=== PATIENT | male | born 1990 | race Caucasian/White ===

== ENCOUNTER → 2020-06-20 09:41 | Outpatient (BNVA) | payer MEDICARE, MEDICAID, SELFPAY | PROVIDERS: Family Provider Nurse Practitioner Family; PCP Nurse Practitioner Family; Visit Provider Psychiatry & Neurology Psychiatry | DX: F29 Unspecified psychosis not due to a substance or known physiological condition (principal); F41.1 Generalized anxiety disorder; S06.9X9A Unspecified intracranial injury with loss of consciousness of unspecified duration, initial encounter | CPT/HCPCS: 90792 ==

== ENCOUNTER 2022-08-30 14:05 | Inpatient (IN) | payer MEDICAID, SELFPAY ==
[2022-08-30 14:13] VITALS: BP 149/90; PULSE 71; RESP 16; TEMP 36.6; O2SAT 98
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
[2022-08-30 14:47] LABS: Basophils # 0.1 10^3/uL (0.0-0.1); Basophils % 0.5 %; Eosinophils # 0.3 10^3/uL (0.0-0.8); Eosinophils % 2.7 %; Hematocrit 49.1 % (42.0-52.0); Hemoglobin 16.1 g/dL (11.7-16.6); Lymphocytes # 3.1 10^3/uL (0.8-4.8); Lymphocytes % 31.3 %; Mean Corpuscular HGB Conc 32.8 g/dL (30.0-36.0); Mean Corpuscular Hemoglobin 31.3 pg (28.0-34.0); Mean Corpuscular Volume 95.3 fl (80-94); Mean Platelet Volume 9.7 fL (7.4-10.4); Monocytes # 0.5 10^3/uL (0.2-0.9); Monocytes % 5.2 %; Neutrophils # 6.03 10^3/uL (1.8-7.7); Neutrophils % 60.2 %; Nucleated Red Blood Cells % 0 %; Platelet Count 231 10^3/cmm (130-400); Red Blood Count 5.15 10^6/uL (4.1-5.3)
[2022-08-30 15:05] LABS: Alanine Aminotransferase 21 U/L (0-41); Albumin Level 4.5 g/dL (3.5-5.2); Alkaline Phosphatase 67 U/L (40-130); Anion Gap 13.2 (5-19); Aspartate Amino Transferase 20 U/L (0-40); Blood Urea Nitrogen 7 mg/dL (6-20); Calcium 9.3 mg/dL (8.5-10.5); Carbon Dioxide 30 mmol/L (22-29); Chloride 104 mmol/L (98-107); Globulin 2.7 g/dL (1.3-4.6); Glomerular Filtration Rate 99.1 mL/min (90-130); Glucose 93 mg/dL (65-115); Osmolality Calculated 294 mOsm/kg (285-295); Potassium 4.2 mmol/L (3.5-5.1); Sodium 143 mmol/L (136-145); Total Bilirubin 0.5 mg/dL (0.15-1.2); Total Protein 7.2 g/dL (6.6-8.7)
[2022-08-30 15:06] LABS: Acetaminophen < 5.0 ug/mL (10-30); Alcohol Level < 10 mg/dL (0-10); Salicylate < 0.3 mg/dL (3-10)
--- NOTE | 2022-08-30 16:12 | PC.PHAR ---
unable to verify medications with pt hes just sitting in his chair knocking on the armrest and wont speak-no meds pull up on ext med history
[2022-08-30 16:20] LABS: Amphetamines Screen Urine Positive (Negative); Barbiturates Screen Urine Negative (Negative); Benzodiazepines Screen Urine Negative (Negative); Cocaine Screen Urine Negative (Negative); Opiate Screen Urine Negative (Negative); PCP Screen Urine Negative (Negative); THC Screen Urine Positive (Negative)
[2022-08-30 16:42] VITALS: BP 148/92; PULSE 68; RESP 20; TEMP 36.9; O2SAT 96
--- NOTE | 2022-08-30 18:59 | PC.NURSE ---
31 Y/O MALE ADMITTED TO NPU UNIT FROM ED. REPORTED THAT PT. WENT TO [facility] FOR SI AND DEPRESSION AND WAS BROUGHT TO [facility] ED DUE TO SEVERITY OF WANTING TO HARM SELF. PATIENT IS INVOL. 96 HOLD. ARRIVED ON UNIT IN W/C ESCORTED BY SECURITY AND ED STAFF. VERY AGITATED AND HOSTILE UPON ARRIVAL. UNCOOPERATIVE. STARED BANGING HEAD ON WALL. CODE 10 CALL BUT WAS NOT USED. PATIENT ANSWERED SOMW QUESTION BY NURSE DURING ASSESSMENT BUT REMAINED VERY AGITATED THROUGHOUT ASSESSMENT. STATED HE HAS 3 TBI'S AND DOESNT REMEMBER THINGS LIKE HE SHOULD. VERY UPSET AND REFUSE TO ANSWER MOST OF ASSESSMENT. NURSE SPOKE WITH MOTHER OF PATIENT AND SHE CONFIRM HER SON HAS NOT BEEN ON ANY MEDS EXCEPT MEDICAL MARIJUANA. STATES HE USES IT FOR HIS SEIZURES. PATIENT IN ROOM AND REFUSES TO SPEAK WITH STAFF. AT THIS TIME.
[2022-08-30 21:30] VITALS: BP 137/92; PULSE 75; RESP 16; TEMP 36.7; O2SAT 94
--- NOTE | 2022-08-31 09:53 | PC.NURSE ---
Pt resting in bed. Name called a few times before pt opened his eyes. Alert, appears oriented. Poor eye contact with staff. Denies anxiety, depression, pain, anger, suicidal/homicidal thoughts. Pt reports he's seeing and hearing my friends. Said his sleep wasn't so good, he tossed and turned. Didn't answer when asked about appetite. Continues to rest in bed. Pt asked if he wanted to add anyone to his call list, but he declined.
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
[2022-08-31 14:00] VITALS: BP 133/84; PULSE 79; RESP 18; TEMP 36.6; O2SAT 97
[2022-08-31 22:00] VITALS: BP 144/80; PULSE 74; RESP 18; TEMP 36.7; O2SAT 96
[2022-08-31] MEDS: nicotine 2 mg Gum BUCCAL (22:29)
--- NOTE | 2022-09-01 10:35 | PC.NURSE ---
Updated phone number for the pt's Sandrine Murcia [phone].
--- NOTE | 2022-09-01 13:37 | PC.NURSE ---
Dr. Meneses notified of pt's seizure-like activity. No new orders.
--- NOTE | 2022-09-01 13:40 | PC.NURSE ---
Pt resting on left side in a near position. Pt's left arm stiff with left hand clenched in a fist resting at the top of his knees. Pt's body was tense and fine tremors noted. Pt's eyes were staring and he did not respond to verbal stimuli. The pt's positioned changed slightly at times. Pt's color remain pink, skin warm and moist with some beads of sweat noted on pt's forehead. Seizure-like activity continued for approximately two minutes and then pt began to respond to staff. RINCON. Pt's breaths became audible, were deep intially and after about three deep breaths pt responded appropriately. The MD came into the pt's room at this time and spoke with him. The patient sat up and adjusted his blankets, then lay back in the bed and visited with the MD. The patient showed no lethargy or sluggishness after this seizure-like activity.
--- NOTE | 2022-09-01 13:53 | PC.NURSE ---
When this nurse and LEADED GLASS INSTALLER entered the pt's room pt was tightening up all muscles and shaking twisting and turning in the bed, Pt never lost consciousness, aroused by voice command. Vitals taken just seconds before the seizure like activity: BP 130/79 O2 98 temp 98.1 pulse 98. 5minutes later Vitals were: BP 120/80 O2 96 temp 98.0 pulse 81 res 16.
[2022-09-01 14:00] VITALS: BP 120/80; PULSE 81; RESP 16; TEMP 36.6; O2SAT 96
--- NOTE | 2022-09-01 16:50 | P.NPUPN_ITS ---
Subjective NPU Subjective: Patient presented today reporting that he wanted to go home. He got very focused on his seizure activity and had moments where he was having seizures. Observation of reported seizures was not convincing and he was likely not having epileptic events but rather functional limits. We did had a lengthy discussion about the possible impact of methamphetamine on seizure activity. After I left the room he punched the wall. Mental Status Exam MSE Comments: This is a well nourished, well developed white male in hospital scrubs with adequate grooming and eye contact. Poor dentition with missing front teeth. No abnormal movements except for mild psychomotor retardation. Cooperative in exam in mild to moderate distress. Mood described as okay but homesick, affect is subdued and occasionally tearful. Thought process, organized. Thought content: patient denies suicidal or homicidal ideation, re ports paranoia with delusions that started after his last traumatic injury of an alternate of himself that he calls his split. He reports that he can control it but it makes him do things he doesn?t want to do. He denies any auditory or visual hallucinations. Attention and concentration are intact and memory appeared reliable but none were formally tested. He is alert and oriented three times. Insight and judgment are fair, impulse control is fair. Vitals/I&O/Wt Last Vital Signs Temp 98 F 09/01/22 14:00 Pulse 81 09/01/22 14:00 Resp 18 09/01/22 14:00 BP 120/80 09/01/22 14:00 Pulse Ox 96 09/01/22 14:00 O2 Del Method 08/31/22 22:00 Weight last 48 hrs Weight 70.307 kg Data NPU 08/30/22 14:30 08/30/22 14:30 A&P Assessment and plan (1) Suicidal ideation: (2) Mild traumatic brain injury: (3) Generalized anxiety disorder: (4) Intermittent explosive disorder in adult: Plan This is a 31 year old white male with a history of trauma and genetic loading for mental health and addiction issues who presents reporting that he would like to be released after being put on a 96 hour hold when he tried to make an appointment at an outpatient service. 1. Continue current medications. He continues to refuse any psychiatric medication reporting that marijuana is his medication. 2. Encourage individual, group and milieu therapy 3. Continue q-15 minute check for safety 4. Recommend sober living treatment at the highest level of care to which the patient is willing to commit. Attestations NPU Medical Necessity Statement*: Inpatient hospitalization is medically necessary and the clinically appropriate intervention at this time. We will monitor medications and make changes as indicated. Likely length of stay is 2-4 days. Coding Level of Care Code Acute Code for Chg Fwd Diagnoses Suicidal ideation R45.851 Mild traumatic brain injury S06.9X9A Generalized anxiety disorder F41.1 Intermittent explosive disorder in adult F63.81
--- NOTE | 2022-09-01 18:33 | PC.NURSE ---
Pt came to nurses station asking for a towel. He slammed his door after entering his room. Shortly afterwards, a loud squeaking noise was heard coming from the pt's room. Staff entered the pt's room and the noise got louder. Staff asked pt what he was doing. He said he was rubbing his hand against the wall of the shower. Staff requested the pt stop doing that so he didn't injure himself. The pt said he wouldn't hurt himself, and he continued to make the noise. Again staff redirected the pt. He stopped briefly. A WAREHOUSE PROCESSOR spoke with the pt and he calmed more.
--- NOTE | 2022-09-01 20:00 | PC.NURSE ---
Patient rude and hostile when attempting to do nursing assessment. Uncooperative with assessment. Patient stated Leave me the fuck alone. What don't you get! Expressed to patient that his behavior was inappropriate.
[2022-09-01 20:16] VITALS: RESP 18
[2022-09-02] MEDS: nicotine 2 mg Gum BUCCAL ×3 (10:33→14:07)
[2022-09-02 14:00] VITALS: BP 114/72; PULSE 105; RESP 18; TEMP 36.6; O2SAT 97
--- NOTE | 2022-09-02 16:16 | P.NPUPN_ITS ---
Subjective NPU Subjective: Patient presented today reporting that things were going a little better. Once again he reported needing to get home to his marijuana to help the 4 seizures he was having every night. We discussed the unlikeliness of him having 4 seizures and having such clear functioning in communication otherwise. He also initially reported that he had not feel safe with his coming to pick him up today if he was discharged but then switched gears and said she would come pick him up. We discussed the possibility of him being discharged in the morning and at the treatment team would try to assist him in finding appropriate follow-up. Mental Status Exam MSE Comments: This is a well nourished, well developed white male in hospital scrubs with adequate grooming and eye contact. Poor dentition with missing front teeth. No abnormal movements except for mild psychomotor retardation. Cooperative in exam in mild distress. Mood described as okay but homesick, affect is subdued. Thought process, organized. Thought content: patient denies suicidal or homicidal ideation, reports paranoia with delusions that started after his last traumatic injury of an alternate of himself that he calls his split. He reports that he can control it. He denies any auditory or visual hallucinations. Attention and concentration are intact and memory appeared unreliable but likely intentionally so but none were formally tested. He is alert and oriented three times. Insight and judgment are fair, impulse control is fair. Vitals/I&O/Wt Last Vital Signs Temp 97.9 F 09/02/22 14:00 Pulse 105 H 09/02/22 14:00 Resp 17 09/02/22 14:00 BP 114/72 09/02/22 14:00 Pulse Ox 97 09/02/22 14:00 O2 Del Method 08/31/22 22:00 Data NPU 08/30/22 14:30 08/30/22 14:30 A&P Assessment and plan (1) Suicidal ideation: (2) Mild traumatic brain injury: (3) Generalized anxiety disorder: (4) Intermittent explosive disorder in adult: Plan This is a 31 year old white male with a history of trauma and genetic loading for mental health and addiction issues who presents reporting that he would like to be released after being put on a 96 hour hold when he tried to make an appointment at an outpatient service. 1. Continue current medications. He continues to refuse any psychiatric medication reporting that marijuana is his medication. 2. Encourage individual, group and milieu therapy 3. Continue q-15 minute check for safety 4. Recommend sober living treatment at the highest level of care to which the patient is willing to commit. Attestations NPU Medical Necessity Statement*: Inpatient hospitalization is medically necessary and the clinically appropriate intervention at this time. We will monitor medications and make changes as indicated. Likely length of stay is 1-3 days. Coding Level of Care Code Acute Code for [facility] Fwd Diagnoses Suicidal ideation R45.851 Mild traumatic brain injury S06.9X9A Generalized anxiety disorder F41.1 Intermittent explosive disorder in adult F63.81
[2022-09-02 20:23] VITALS: RESP 17
[2022-09-03] MEDS: nicotine 2 mg Gum BUCCAL ×2 (12:29→15:06)
[2022-09-03 14:00] VITALS: BP 123/81; PULSE 94; RESP 17; TEMP 36.6; O2SAT 96
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
[2022-09-03 14:18] VITALS: BP 114/72; PULSE 105; RESP 18; TEMP 36.6; O2SAT 97
--- NOTE | 2022-09-03 15:50 | PC.NURSE ---
pt given discharge paperwork, discussed with patient, he states understanding and compliance. pt left via pov with spouse and child.
== END 2022-09-03 15:48 | disposition home or self-care (01) | DRG 883 ==
LOC: ER 16:14 → NP 16:17
PROVIDERS: Physician Assistant; Admitting Provider Psychiatry & Neurology Psychiatry; Emergency Provider Family Medicine; Visit Provider Psychiatry & Neurology Psychiatry
DX: F63.81 Intermittent explosive disorder (principal); R45.851 Suicidal ideations; R45.850 Homicidal ideations; Z87.820 Personal history of traumatic brain injury; F17.210 Nicotine dependence, cigarettes, uncomplicated; F40.11 Social phobia, generalized; F12.90 Cannabis use, unspecified, uncomplicated
CPT/HCPCS: 36415; 80053; 80306; 80307; 85025; 99285